=== PATIENT | male | born 1995 | race American Indian/Alaskan Native ===

== ENCOUNTER 2016-12-03 07:15 | Emergency (ER) | payer BC ==
[2016-12-03] MEDS ORDERED: NACL 0.9% 1000 ML 1,000 ML IV ONE (08:24)
[2016-12-03 08:32] LABS: Anion Gap 21 mmol/L; BUN/Creatinine Ratio 7.77; Basophils % (Auto) 0.2 % (0.0-1.8); Blood Urea Nitrogen 7 mg/dL (9-20); Calcium 9.8 mg/dL (8.4-10.2); Carbon Dioxide 23 mmol/L (22-30); Chloride 98.2 mmol/L (98-107); Eosinophils % (Auto) 0.2 % (0.0-4.3); Glucose 101 mg/dL (75-100); Hematocrit 45.1 % (35.5-45.6); Hemoglobin 14.4 gm/dl (11.8-15.2); Mean Corpuscular HGB Conc 32 % (32-34); Mean Corpuscular Volume 79 fl (84-94); Platelet Count 234 K/mm3 (140-440); Potassium 3.7 mmol/L (3.6-5.0); Red Cell Distribution Width 14.5 % (13.2-15.2); Sodium 138 mmol/L (137-145); White Blood Count 6.9 K/mm3 (4.5-11.0)
[2016-12-03 08:43] LABS: Alanine Aminotransferase 20 units/L (7-56); Albumin 4.8 g/dL (3.9-5); Albumin/Globulin Ratio 1.5 %; Alkaline Phosphatase 55 units/L (35-129); Bilirubin,Total 0.6 mg/dL (0.1-1.2); Creatine Kinase 409 units/L (55-170); Total Protein 8.1 g/dL (6.3-8.2)
[2016-12-03 08:51] LABS: Bilirubin,Direct < 0.2 mg/dL (0-0.2)
[2016-12-03 09:01] LABS: Mean Corpuscular Hemoglobin 25 pg (28-32)
[2016-12-03 09:17] LABS: Urine Drugs of Abuse Note Disclamer
[2016-12-03 09:46] LABS: Bilirubin,Urine NEG (Negative); Blood,Urine NEG (Negative); Ketones,Urine 20 mg/dL (Negative); Leukocyte Esterase,Urine NEG (Negative); Mucus,Urine FEW /HPF; Nitrite,Urine NEG (Negative); Protein,Urine <15 mg/dL mg/dL (Negative); Urobilinogen,Urine < 2.0 mg/dL (<2.0); WBC,Urine < 1.0 /HPF (0.0-6.0)
--- NOTE | 2016-12-03 14:51 | Emergency Department Report ---
<VIOLETA CHAN - Last Filed: 12/03/16 16:26> ED Alcohol HPI - General Chief Complaint: Alcohol Stated Complaint: ALTERED MENTAL STATUS Time Seen by Provider: 12/03/16 08:14 Source: patient, EMS Mode of arrival: Stretcher Limitations: No Limitations - History of Present Illness Initial Comments: 21-year-old male with a past medical history bipolar and schizophrenia presents to the hospital complains of being found sitting in a car. Patient patient was incontinent and was found by police. Patient admitted to EMS that he was smoking marijuana, using ecstasy, and drink alcohol. Patient states he was talking to [place]. He denies any suicidal homicidal ideation. No pain reported - Related Data Home Medications Medication Instructions Recorded Confirmed Last Taken Claritin 12/03/16 Unknown Allergies Allergy/AdvReac Type Severity Reaction Status Date / Time haloperidol [From Haldol] AdvReac Unknown Verified 12/03/16 07:29 haloperidol lactate AdvReac Unknown Verified 12/03/16 07:29 [From Haldol] ED Review of Systems ROS: Stated complaint: ALTERED MENTAL STATUS Other details as noted in HPI Comment: All other systems reviewed and negative Other: Constitutional: No fevers chills Eyes: No eye pain visual changes ENT: No ear pain or throat pain Neck: Denies pain Respiratory: Denies cough wheezing shortness of breath Cardiovascular: Denies chest pain, palpitations, syncope GI: Denies abdominal pain, nausea, vomiting, diarrhea : Denies dysuria Musculoskeletal: Denies back pain Skin: Denies rash, lesions, erythema Neurologic: Denies headache, numbness, weakness Psychiatric: Denies suicidal ideation ED Past Medical Hx - Past Medical History Hx Psychiatric Treatment: Yes (bipolar, schizophrenic) - Surgical History Past Surgical History?: No - Social History Smoking Status: Unknown if ever smoked Substance Use Type: Alcohol, Marijuana, Other - Medications Home Medications: Home Medications Medication Instructions Recorded Confirmed Last Taken Type Claritin 12/03/16 Unknown History ED Physical Exam - General Limitations: No Limitations - Other Other exam information: General: No limitations, patient is alert in no acute distress Head exam: Atraumatic, normocephalic Eyes exam: Normal appearance, pupils equal reactive to light ENT: Moist mucous membrane, normal oropharynx Neck exam: Normal inspection, full range of motionr Respiratory exam: Clear to auscultation bilateral, no wheezes, rales, crackles Cardiovascular: Normal rate and rhythm. When patient sits up in the bed heart rate increases Abdomen: Soft, nondistended, and nontender, with normal bowel sounds, no rebound, or guarding Extremity: Full range of motion normal inspection no deformity Back: Normal Inspection, full range of motion, no tenderness Neurologic: Alert, oriented x3, cranial nerves intact, no motor or sensory deficit Psychiatric: normal affect, normal mood Skin: Warm, dry, intact ED Course Vital Signs 12/03/16 12/03/16 12/03/16 07:23 09:30 11:33 Temperature 97.6 F 98.7 F Pulse Rate 75 63 77 Respiratory 16 18 16 Rate Blood Pressure 138/78 Blood Pressure 127/77 105/58 [Left] O2 Sat by Pulse 100 100 100 Oximetry 12/03/16 12/03/16 12/03/16 13:29 15:30 17:30 Temperature 98.8 F 98.4 F 98.2 F Pulse Rate 68 71 69 Respiratory 18 17 16 Rate Blood Pressure Blood Pressure 126/66 115/71 131/74 [Left] O2 Sat by Pulse 100 100 100 Oximetry 12/03/16 19:00 Temperature Pulse Rate 72 Respiratory 18 Rate Blood Pressure Blood Pressure 122/75 [Left] O2 Sat by Pulse 100 Oximetry - Reevaluation(s) Reevaluation #1: 12/03/16 14:48 Initially patient appeared to have generalized weakness during exam because he struggles to sit up in the bed, during ED stay he has been witnessed walking back and forth to the bathroom without difficulty. During my initial exam patient started to tremble, and rolled his eyes back and flutter his eyes. I told him to stop doing it and he stopped immediately. During his ED stay patient urinated in the bed stating that he just had to go so he went as opposed to walking to the bathroom. His mother is in another state and we are awaiting her arrival to the ER to safely discharge patient. She has spoken to the patient many times during his ED stay and there are no reports of a change in his behavior. She informed the nurse that patient did not have a diagnosis of schizophrenia and bipolar in a doctor just wrote it on the papers. She expresses he had isolated issue of psychosis. Patient however, is exhibiting some mildly abnormal behavior but communicates clearly, has no suicidal ideation , or homicidal ideation. Once mother arrives to the ED patient will be discharged in her care. She is persistent concern for acute change in behavior. ED Medical Decision Making - Lab Data Result diagrams: 12/03/16 07:50 12/03/16 07:50 Lab Results 12/03/16 12/03/16 12/03/16 Range/Units 07:50 07:50 07:50 WBC 6.9 (4.5-11.0) K/mm3 RBC 5.70 H (3.65-5.03) M/mm3 Hgb 14.4 (11.8-15.2) gm/dl Hct 45.1 (35.5-45.6) % MCV 79 L (84-94) fl MCH 25 L (28-32) pg MCHC 32 (32-34) % RDW 14.5 (13.2-15.2) % Plt Count 234 (140-440) K/mm3 Lymph % (Auto) 27.7 (13.4-35.0) % Will % (Auto) 5.8 (0.0-7.3) % Eos % (Auto) 0.2 (0.0-4.3) % Baso % (Auto) 0.2 (0.0-1.8) % Lymph # 1.9 (1.2-5.4) K/mm3 Will # 0.4 (0.0-0.8) K/mm3 Eos # 0.0 (0.0-0.4) K/mm3 Baso # 0.0 (0.0-0.1) K/mm3 Seg Neutrophils % 66.1 (40.0-70.0) % Seg Neutrophils # 4.6 (1.8-7.7) K/mm3 Sodium 138 (137-145) mmol/L Potassium 3.7 (3.6-5.0) mmol/L Chloride 98.2 (98-107) mmol/L Carbon Dioxide 23 (22-30) mmol/L Anion Gap 21 mmol/L BUN 7 L (9-20) mg/dL Creatinine 0.9 (0.8-1.5) mg/dL Estimated GFR > 60 ml/min BUN/Creatinine Ratio 7.77 % Glucose 101 H (75-100) mg/dL Calcium 9.8 (8.4-10.2) mg/dL Total Bilirubin (0.1-1.2) mg/dL Direct Bilirubin (0-0.2) mg/dL AST (5-40) units/L ALT (7-56) units/L Alkaline Phosphatase (35-129) units/L Total Creatine Kinase (55-170) units/L Total Protein (6.3-8.2) g/dL Albumin (3.9-5) g/dL Albumin/Globulin Ratio % Urine Color (Yellow) Urine Turbidity (Clear) Urine pH (5.0-7.0) Ur Specific [place] (1.003-1.030) Urine Protein (Negative) mg/dL Urine Glucose (UA) (Negative) mg/dL Urine Ketones (Negative) mg/dL Urine Blood (Negative) Urine Nitrite (Negative) Urine Bilirubin (Negative) Urine Urobilinogen (<2.0) mg/dL Ur Leukocyte Esterase (Negative) Urine WBC (Auto) (0.0-6.0) /HPF Urine RBC (Auto) (0.0-6.0) /HPF Urine Mucus /HPF Urine Opiates Screen Urine Methadone Screen Ur Barbiturates Screen Ur Phencyclidine Scrn Ur Amphetamines Screen U Benzodiazepines Scrn Urine Cocaine Screen U Marijuana (THC) Screen Drugs of Abuse Note Plasma/Serum Alcohol < 0.01 (0-0.07) gm% 12/03/16 12/03/16 12/03/16 Range/Units 07:50 09:00 09:00 WBC (4.5-11.0) K/mm3 RBC (3.65-5.03) M/mm3 Hgb (11.8-15.2) gm/dl Hct (35.5-45.6) % MCV (84-94) fl MCH (28-32) pg MCHC (32-34) % RDW (13.2-15.2) % Plt Count (140-440) K/mm3 Lymph % (Auto) (13.4-35.0) % Will % (Auto) (0.0-7.3) % Eos % (Auto) (0.0-4.3) % Baso % (Auto) (0.0-1.8) % Lymph # (1.2-5.4) K/mm3 Will # (0.0-0.8) K/mm3 Eos # (0.0-0.4) K/mm3 Baso # (0.0-0.1) K/mm3 Seg Neutrophils % (40.0-70.0) % Seg Neutrophils # (1.8-7.7) K/mm3 Sodium (137-145) mmol/L Potassium (3.6-5.0) mmol/L Chloride (98-107) mmol/L Carbon Dioxide (22-30) mmol/L Anion Gap mmol/L BUN (9-20) mg/dL Creatinine (0.8-1.5) mg/dL Estimated GFR ml/min BUN/Creatinine Ratio % Glucose (75-100) mg/dL Calcium (8.4-10.2) mg/dL Total Bilirubin 0.6 (0.1-1.2) mg/dL Direct Bilirubin < 0.2 (0-0.2) mg/dL AST 20 (5-40) units/L ALT 20 (7-56) units/L Alkaline Phosphatase 55 (35-129) units/L Total Creatine Kinase 409 H (55-170) units/L Total Protein 8.1 (6.3-8.2) g/dL Albumin 4.8 (3.9-5) g/dL Albumin/Globulin Ratio 1.5 % Urine Color Colorless (Yellow) Urine Turbidity Clear (Clear) Urine pH 7.0 (5.0-7.0) Ur Specific [place] 1.004 (1.003-1.030) Urine Protein <15 mg/dl (Negative) mg/dL Urine Glucose (UA) Neg (Negative) mg/dL Urine Ketones 20 (Negative) mg/dL Urine Blood Neg (Negative) Urine Nitrite Neg (Negative) Urine Bilirubin Neg (Negative) Urine Urobilinogen < 2.0 (<2.0) mg/dL Ur Leukocyte Esterase Neg (Negative) Urine WBC (Auto) < 1.0 (0.0-6.0) /HPF Urine RBC (Auto) 1.0 (0.0-6.0) /HPF Urine Mucus Few /HPF Urine Opiates Screen Presumptive negative Urine Methadone Screen Presumptive negative Ur Barbiturates Screen Presumptive negative Ur Phencyclidine Scrn Presumptive negative Ur Amphetamines Screen Presumptive negative U Benzodiazepines Scrn Presumptive negative Urine Cocaine Screen Presumptive negative U Marijuana (THC) Screen Presumptive negative Drugs of Abuse Note Disclamer Plasma/Serum Alcohol (0-0.07) gm% - Medical Decision Making Patient's UDS is surprisingly negative and alcohol level negative as well. I'm unsure if patient really use drugs or rashes stated he did. Amoxicillin sure patient to drugs that are not being detected by the UDS. Patient medically cleared once mother can come to the hospital to verify his current mental status as his baseline. - Differential Diagnosis bipolar, schizophrenia, polysubstance abuse Critical Care Time: No Critical care attestation.: If time is entered above; I have spent that time in minutes in the direct care of this critically ill patient, excluding procedure time. ED Disposition Clinical Impression: Schizophrenia, Polysubstance abuse Disposition: DISCHARGED TO HOME OR SELFCARE Is pt being admited?: No Does the pt Need Aspirin: No Condition: Stable Instructions: Schizophrenia (ED), Polysubstance Abuse (ED) Referrals: [facility] [Provider Group] - 3-5 Days [facility] [Outside] - 3-5 Days Forms: Work/School Release Form(ED) Time of Disposition: 16:27 <GRAYSON MAHMOOD I. - Last Filed: 12/03/16 19:30> ED Alcohol HPI - History of Present Illness Initial Comments: She was evaluated by psychiatry team here. They will accept the patient if the patient is a 1013. However the patient does have his own psychiatrist and his mother is here at the bedside. Patient's mother arrived at 1700. Had a discussion with her at the bedside with the patient. She agrees patient does lack insight and has a history of psych illnesses and has psychiatrist that he sees. Patient is currently not medicated. Patient feels comfortable going home with mother and patient's mother feels comfortable taking the patient home and seeing his home psychiatrist. ED Medical Decision Making - Lab Data Result diagrams: 12/03/16 07:50 12/03/16 07:50 - Medical Decision Making Patient reevaluated by myself Dr. Mahmood at 1709. Patient is a young 21-year-old male pleasant at bedside a note 3 following all commands and speaking appropriately, however patient lacks insight into why he is in the hospital and answers questions in the wrong context. When asked if there is anything I can get him, as in food or water, patient reports he needs lots of things and asked me where he should begin. As he began to speak he wanted help "getting a girl". Pt then began to laugh as i told him I can only help him with medical issues, food, and water. Pt is awaiting his mother to arrive. Nurse notified me also that when she recently spoke with the mother she reported her son "is not right and is speaking strangely". Psych to be consulted ED Disposition Is pt being admited?: No
[2016-12-03 19:01] VITALS: BP 122/75
== END 2016-12-03 19:02 | disposition home or self-care (01) ==
LOC: ED 07:15
DX: F20.9 Schizophrenia, unspecified (principal); F19.10 Other psychoactive substance abuse, uncomplicated; F31.9 Bipolar disorder, unspecified; F12.10 Cannabis abuse, uncomplicated; Z88.8 Allergy status to other drugs, medicaments and biological substances
CPT/HCPCS: 36415; 80048; 80074; 80307; 81001; 82550; 85025; 96360; 96361; 99284; G0480; J7030; 80320